=== PATIENT | male | born 2005 | race Caucasian/White ===

== ENCOUNTER 2025-08-19 22:46 | Emergency (ER) | payer OTHER ==
[~2025-08-19] VITALS: Ht 177.8 cm; Wt 90.0 kg
[2025-08-20 00:34] VITALS: TEMP 98.5; O2SAT 71
[2025-08-20 03:24] VITALS: BP 177/71
[2025-08-20] MEDS ORDERED: VENTAER INH (03:44)
[2025-08-20] MEDS ORDERED: PRED20TA PO (03:44)
[2025-08-20] MEDS: predniSONE 20 MG TAB PO ONE (04:05)
== END 2025-08-20 04:10 | disposition home or self-care (01) ==
LOC: M ED 22:46
DX: R06.02 Shortness of breath (principal); B34.1 Enterovirus infection, unspecified; Z79.51 Long term (current) use of inhaled steroids; Z79.52 Long term (current) use of systemic steroids
CPT/HCPCS: 71046; 87486; 87581; 87633; 87798; 99283; J7512